=== PATIENT | female | born 1985 | race Caucasian/White ===

== ENCOUNTER 2021-08-25 06:32 | Inpatient (IN) | payer BC ==
[2021-08-25] MEDS: Lactated Ringer's 1,000 ML IV SCH ×3 (07:15→18:39)
[2021-08-25] MEDS ORDERED: HYDROcodone/Acetaminophen 5/325 mg Tablet PO PRN ×3 (07:27→23:14)
[2021-08-25] MEDS ORDERED: Promethazine HCl 25 MG/ML VIAL IM PRN ×3 (07:27→23:40)
[2021-08-25] MEDS ORDERED: Butorphanol Tartrate 1 MG/ML VIAL SLOW IVP PRN (07:27)
[2021-08-25] MEDS ORDERED: Acetaminophen 500 MG TAB PO PRN (07:27)
[2021-08-25] MEDS ORDERED: Methylergonovine 0.2 MG/ML VIAL IM PRN (07:27)
[2021-08-25] MEDS ORDERED: Carboprost 250 MCG/ML AMP IM PRN (07:27)
[2021-08-25] MEDS ORDERED: hydrALAZINE 20 MG/ML VIAL SLOW IVP PRN ×2 (07:27→23:14)
[2021-08-25] MEDS ORDERED: Lidocaine 1% (PF) 30 ML VIAL SC PRN (07:27)
[2021-08-25] MEDS ORDERED: Misoprostol 200 MCG TAB PR PRN (07:27)
[2021-08-25] MEDS ORDERED: Diphenoxylate HCl/Atropine Tablet PO PRN (07:27)
[2021-08-25] MEDS ORDERED: Ondansetron PF 4 MG/2 ML Vial IVP PRN ×4 (07:27→23:40)
[2021-08-25] MEDS ORDERED: Ibuprofen 800 MG TAB PO PRN (07:27)
[2021-08-25] MEDS ORDERED: Butorphanol Tartrate 1 MG/ML VIAL ONE (07:29)
[2021-08-25] MEDS ORDERED: NS w/ Oxytocin 30 units 500 ML IV SCH ×2 (07:30→23:14)
[2021-08-25] MEDS ORDERED: Fentanyl 2 mcg/Bup 0.1% Cadd 100 ML ONE ×2 (07:37→14:46)
[2021-08-25 07:39] LABS: Hemoglobin 13.1 g/dL (12.0-15.5); Mean Corpuscular HGB CONC 33.9 g/dL (32.0-36.0); Mean Corpuscular Hemoglobin 29.7 pg (27.0-33.0); Mean Corpuscular Volume 87.5 fl (81.6-98.3); Mean Platelet Volume 10.4 fl (7.4-10.4); Platelet Count 222 10x3/uL (150-450); RBC Distribution Width 15.3 % (11.5-14.5); Red Blood Cell (RBC) Count 4.41 10x6/uL (3.90-5.03); White Blood Cell (WBC) Count 10.6 10x3/uL (3.5-10.5)
[2021-08-25 07:56] VITALS: BMI 37.0
[2021-08-25] MEDS ORDERED: Bupivacaine HCl 0.5%/Epinephrine 1:200,000/PF 30 ml Vial ONE (08:00)
[2021-08-25] MEDS ORDERED: ePHEDrine Sulfate 50 MG/10 ML VIAL ONE (08:00)
[2021-08-25] MEDS ORDERED: Bupivacaine/Epinephrine 0.25% 30 ML VIAL ONE (08:00)
[2021-08-25 08:11] LABS: Syphilis Antibody Nonreactive (Nonreactive); Syphilis Antibody Index 0.07 S/CO (<1.00 Non-Reactive)
[2021-08-25 08:12] LABS: Hep B Surf Ag Non-Reactive S/CO (NonReactive)
[2021-08-25 08:21] LABS: HBSAg Index 0.16 S/CO (0-0.99)
[2021-08-25] MEDS ORDERED: Ondansetron PF 4 MG/2 ML Vial ONE ×2 (09:28→19:58)
[2021-08-25 10:58] LABS: SARS-CoV-2 NAA Rapid Test Not Detected (NotDetected)
[2021-08-25] MEDS ORDERED: ePHEDrine Sulfate 50 MG/10 ML VIAL SLOW IVP PRN (16:25)
[2021-08-25] MEDS ORDERED: Naloxone HCl 0.4 mg/ml Vial IVP PRN ×4 (16:25→23:40)
[2021-08-25] MEDS ORDERED: Lactated Ringer's 500 ML IV PRN (16:25)
[2021-08-25] MEDS ORDERED: diphenhydrAMINE 50 MG/ML VIAL IVP PRN ×2 (16:25→23:40)
[2021-08-25] MEDS ORDERED: Acetaminophen 325 MG TAB PO PRN (16:25)
[2021-08-25] MEDS ORDERED: Moisturizing Cream (Eucerin) 113 GM JAR TOP PRN ×2 (16:25→23:40)
[2021-08-25] MEDS ORDERED: Communication Order-Pharmacy FS SCH ×2 (16:30→23:45)
[2021-08-25] MEDS ORDERED: ceFAZolin 2 GM/Dextrose 50 ML IVPB ONE (17:58)
[2021-08-25] MEDS ORDERED: Acetaminophen 500 MG TAB PO SCH (18:15)
[2021-08-25 18:18] LABS: ALT (SGPT) 15 U/L (8-55); AST (SGOT) 20 U/L (5-34); Albumin 3.6 g/dL (3.5-5.0); Alkaline Phosphatase 199 U/L (40-110); Anion Gap 18 mmol/L (10-20); BUN (Urea Nitrogen) 11 mg/dL (7.0-18.7); Bilirubin, Total 0.3 mg/dL (0.2-1.2); Calc. Creatinine Clearance 171 mL/min (70-130); Carbon Dioxide 17 mmol/L (22-29); Chloride 106 mmol/L (98-107); Globulin 2.6 g/dL (2.4-3.5); Glucose 89 mg/dL (70-105); Potassium 4.1 mmol/L (3.5-5.1); Protein, Total 6.2 g/dL (6.0-8.3); Sodium 137 mmol/L (136-145)
[2021-08-25] MEDS ORDERED: Azithromycin 500 MG VIAL ONE (18:21)
[2021-08-25] MEDS ORDERED: Azithromycin 500 MG in Sodium Chloride 0.9% 250 ML 250 ML IVPB SCH (18:30)
[2021-08-25] MEDS ORDERED: Misoprostol 200 MCG TAB ONE (19:02)
[2021-08-25] MEDS ORDERED: Carboprost 250 MCG/ML AMP ONE (19:02)
[2021-08-25] MEDS ORDERED: Methylergonovine 0.2 MG/ML VIAL ONE (19:03)
[2021-08-25] MEDS ORDERED: Morphine PF 10 MG/10 ML VIAL ONE (19:24)
[2021-08-25] MEDS ORDERED: Fentanyl 100 MCG/2 ML VIAL ONE (19:24)
[2021-08-25] MEDS ORDERED: Dexamethasone 4 mg/ml Vial ONE (19:58)
[2021-08-25] MEDS ORDERED: PHENYLEPHRINE-NS 100 MCG/ML 10 ML SYRINGE ONE (19:58)
[2021-08-25] MEDS ORDERED: Ketorolac Tromethamine 30 MG/ML VIAL ONE (19:58)
[2021-08-25] MEDS ORDERED: Morphine PF 10 MG/10 ML VIAL FS ONE (21:44)
[2021-08-25] MEDS ORDERED: Bisacodyl 10 MG SUPP PR PRN (23:14)
[2021-08-25] MEDS ORDERED: Simethicone Chewable 80 MG TAB PO PRN (23:14)
[2021-08-25] MEDS ORDERED: Boostrix 0.5 ML (Tdap) VIAL IM ONE (23:14)
[2021-08-25] MEDS ORDERED: Lanolin Ointment 7 GM TUBE TOP PRN (23:14)
[2021-08-25] MEDS ORDERED: diphenhydrAMINE 25 MG CAP PO PRN (23:14)
[2021-08-25] MEDS ORDERED: Docusate 100 MG CAP PO SCH (23:30)
[2021-08-25] MEDS ORDERED: Ibuprofen 800 MG TAB PO SCH (23:30)
[2021-08-25] MEDS ORDERED: Ferrous Sulfate 325 MG TAB PO SCH (23:30)
[2021-08-25] MEDS ORDERED: Naloxone HCl 0.4 mg/ml Vial IV PRN (23:40)
[2021-08-25] MEDS ORDERED: Promethazine HCl 25 MG SUPP PR PRN (23:40)
[2021-08-26] MEDS: ceFAZolin 2 GM/Dextrose 50 ML 2 GM in Premix Bag 1 BAG IVPB SCH ×2 (00:17→04:37)
[2021-08-26 05:19] LABS: Hemoglobin 11.6 g/dL (12.0-15.5); Mean Corpuscular HGB CONC 34.4 g/dL (32.0-36.0); Mean Corpuscular Hemoglobin 29.8 pg (27.0-33.0); Mean Corpuscular Volume 86.6 fl (81.6-98.3); Mean Platelet Volume 10.7 fl (7.4-10.4); Platelet Count 205 10x3/uL (150-450); RBC Distribution Width 15.9 % (11.5-14.5); Red Blood Cell (RBC) Count 3.89 10x6/uL (3.90-5.03); White Blood Cell (WBC) Count 18.8 10x3/uL (3.5-10.5)
[2021-08-26] MEDS: Ibuprofen 800 MG TAB PO SCH ×3 (06:23→21:37)
[2021-08-26] MEDS: Lactated Ringer's 1,000 ML IV SCH ×2 (08:31→08:32)
[2021-08-26] MEDS: Ferrous Sulfate 325 MG TAB PO SCH ×2 (08:32→22:58)
[2021-08-26] MEDS: Docusate 100 MG CAP PO SCH ×2 (08:33→21:37)
[2021-08-26] MEDS: Prenatal Vitamin 1 TAB PO SCH (08:33)
[2021-08-26] MEDS ORDERED: HYDROcodone/Acetaminophen 5/325 mg Tablet PO PRN ×2 (11:45)
[2021-08-26] MEDS ORDERED: Butorphanol Tartrate 1 MG/ML VIAL SLOW IVP PRN (11:45)
[2021-08-26] MEDS ORDERED: Azithromycin 500 MG in Sodium Chloride 0.9% 250 ML 250 ML IVPB SCH (18:30)
[2021-08-27] MEDS: Ibuprofen 800 MG TAB PO SCH ×3 (05:56→21:28)
[2021-08-27] MEDS: Docusate 100 MG CAP PO SCH ×2 (08:21→21:29)
[2021-08-27] MEDS: Prenatal Vitamin 1 TAB PO SCH (08:21)
[2021-08-27] MEDS: Lactated Ringer's 1,000 ML IV SCH ×3 (08:21→20:17)
[2021-08-27] MEDS: Ferrous Sulfate 325 MG TAB PO SCH ×2 (12:41→20:16)
[2021-08-28] MEDS: Lactated Ringer's 1,000 ML IV SCH (05:03)
[2021-08-28] MEDS: Ibuprofen 800 MG TAB PO SCH (05:04)
[2021-08-28 07:24] VITALS: BP 131/79; TEMP 98.5
[2021-08-28] MEDS: Ferrous Sulfate 325 MG TAB PO SCH (08:54)
[2021-08-28] MEDS: Prenatal Vitamin 1 TAB PO SCH (08:54)
[2021-08-28] MEDS: Docusate 100 MG CAP PO SCH (08:54)
== END 2021-08-28 13:50 | disposition home or self-care (01) | DRG 786 ==
LOC: CSHLD/OP 06:32 → CSHLD 19:00 → CSHPP 22:46
PROVIDERS: ADMIT Obstetrics & Gynecology; ATTEND Obstetrics & Gynecology
PROC: 10D00Z1 Extraction of Products of Conception, Low, Open Approach (ICD-10-PCS; principal; 2021-08-25)
DX: O42.02 Full-term premature rupture of membranes, onset of labor within 24 hours of rupture (principal); O41.1230 Chorioamnionitis, third trimester, not applicable or unspecified; N99.71 Accidental puncture and laceration of a genitourinary system organ or structure during a genitourinary system procedure; Z37.0 Single live birth; Z3A.40 40 weeks gestation of pregnancy; Z20.822 Contact with and (suspected) exposure to COVID-19; O76 Abnormality in fetal heart rate and rhythm complicating labor and delivery; O62.2 Other uterine inertia; N90.89 Other specified noninflammatory disorders of vulva and perineum; O99.892 Other specified diseases and conditions complicating childbirth; O32.8XX0 Maternal care for other malpresentation of fetus, not applicable or unspecified
CPT/HCPCS: 36415; 51702; 80053; 85027; 86780; 86850; 86900; 86901; 87340; 99285; J0456; J0595; J0690; J1100; J1885; J2001; J2210; J2274; J2405; J2590; J3010; J3490; J7120; U0002